=== PATIENT | male | born 1945 | race Caucasian/White ===

== ENCOUNTER 2022-09-17 09:44 | Emergency (ER) | payer MEDICARE, SELFPAY ==
--- NOTE | 2022-09-17 09:45 | ED.MALEGU ---
HPI - Male Genitourinary General Stated complaint: urinary issue Time Seen by Provider: 09/17/22 09:45 Source: patient Mode of arrival: ambulatory Limitations: no limitations Review of Systems Review of Systems: All systems reviewed & are unremarkable except as noted in HPI and below Constitutional: Constitutional: Denies chills, Denies fever(s), Denies headache(s), Denies malaise and Denies weakness Eyes: Eyes: Denies change in vision, Denies eye discharge and Denies irritation ENT: Denies otalgia, Denies headache(s), Denies nasal congestion, Denies nasal discharge, Denies sinus pain and Denies sore throat Cardiovascular: Cardiovascular: Denies chest pain, Denies edema, Denies palpitations and Denies dyspnea Respiratory: Respiratory: Denies cough and Denies dyspnea Gastrointestinal: Gastrointestinal: Denies abdominal pain, Denies diarrhea, Denies nausea and Denies vomiting Genitourinary: Genitourinary: Denies hematuria, Reports dysuria, Denies flank pain, Reports urinary frequency and Reports urinary urgency Musculoskeletal: Musculoskeletal: Denies back pain and Denies numbness Integumentary/Breasts: Skin/Breast: Denies pruritus and Denies rash Neurologic: Denies headache(s), Denies numbness and Denies weakness Psychiatric: Psychiatric: Reports no additional psychiatric complaints Endocrine: Endocrine: Denies palpitations PMFSH Comments At time of signature, agree with nursing past medical, surgical, social and family history. There is no relevant family history pertinent to the presenting complaint. Exam Const: General: cooperative, healthy appearing, comfortable, no acute distress and well nourished Nutritional Appearance: well nourished Orientation/consciousness: patient oriented x3 HENMT: Head: normocephalic and atraumatic Ears: external ears normal Face/Nose/Sinus: Normal external nose present, Normal nares present and normal facial exam Face and sinus: normal facial exam Eyes: General: appearance normal, both eyes and all related structures Pupils: Equal, round and reactive pupils present EOM: EOMs intact bilaterally Neck: Neck: normal visual inspection, full ROM and supple Chest: Chest palpation & inspection: normal inspection of the chest Resp: Effort & Inspection: normal respiratory effort and able to speak in complete sentences Cardio: Rate: regular rate Rhythm: regular rhythm GI: Inspection: normal to inspection GI Palp: No abdominal tenderness and Yes Soft to palpation : General: Yes no CVA tenderness Back/Spine/Pelvis: Back: no CVA tenderness Skin: General skin exam: normal color and no rashes or lesions noted Neuro: General: patient oriented x3 and moves all extremities Cranial nerves: Yes Equal, round and reactive pupils present Extrem: General: normal to inspection and full ROM Psych: Appearance: grossly normal and well kempt Course Course Emergency Course: Patient is aware of diagnosis, understands and agrees to treatment plan. Anticipatory guidance given. Patient agrees to follow-up as directed and is aware of reasons to seek care at the emergency department. Portions of this record may have been created with voice recognition software Level of Care: Express Care Visit Vital Signs Vital signs: Reviewed MDM - Male Genitourinary Lab Data Attestation: I reviewed the patient's lab results. Discharge Plan Discharge Follow-up/Referrals: UNKNOWN,DOCTOR [Primary Care Provider] -
== END 2022-09-17 09:50 | disposition left against medical advice (07) ==
PROVIDERS: Emergency Provider Internal Medicine Hematology & Oncology; PCP Emergency Medicine
DX: Z53.21 Procedure and treatment not carried out due to patient leaving prior to being seen by health care provider (principal)
CPT/HCPCS: 99199

== ENCOUNTER 2022-09-17 10:21 | Emergency (ER) | payer MEDICARE, SELFPAY ==
[2022-09-17 10:26] VITALS: BP 167/97; PULSE 95; RESP 18; TEMP 36.2; O2SAT 100
--- NOTE | 2022-09-17 10:50 | ED.MALEGU ---
HPI - Male Genitourinary General Chief complaint: Urogenital-Male Stated complaint: Urinary retention Time Seen by Provider: 09/17/22 10:35 History of Present Illness HPI Narrative: 77-year-old male reports for evaluation for urinary retention since this morning. Patient states last time he urinated was around 1 AM. States he had his Lasix and 2 cups of coffee in has not been able to empty his bladder. He does report a small amount of dribbling this morning. He does report recent increase urinary frequency and urgency but has never had urinary retention prior. He does not see a urologist. He is currently traveling from [place]. Denies abdominal pain, fever, dysuria or hematuria, back pain, rectal pain. Review of Systems Review of Systems: CONSTITUTIONAL: Denies fever, chills EYES: Denies visual changes, redness, or discharge. ENT: Denies rhinorrhea, congestion, sore throat, or otalgia. CARDIOVASCULAR: Denies chest pain, palpitations, or edema. RESPIRATORY: Denies cough or dyspnea. GASTROINTESTINAL: Denies abdominal pain, nausea, vomiting, or diarrhea. GENITOURINARY: See HPI SKIN: Denies rash or itching. MUSCULOSKELETAL: Denies back pain, joint pain, or myalgia. NEUROLOGIC: Denies headache, numbness, dizziness, or weakness. PSYCHIATRIC: Denies anxiety or depression. Exam Narrative: GENERAL: Well-appearing, in no acute distress. Patient resting comfortably in exam bed. He is pleasant and conversational HEAD: Normocephalic NECK: Supple. CHEST: No respiratory distress. Clear to auscultation, no adventitious breath sounds. HEART: Regular rate and rhythm. No murmur heard. Normal peripheral pulses. ABDOMEN: Soft, nontender, normal active bowel sounds. No CVA tenderness. No guarding or rigidity. No rebound tenderness. No scrotal or penile edema, erythema or tenderness. Pablo catheter placed in appropriate position. EXTREMITIES: Normal range of motion. No edema. SKIN: Warm, dry, no rash. NEURO: No focal deficits. Alert and oriented x3. PSYCH: Normal mood and affect. Course Vital Signs Vital signs: Vital Signs Temperature 97.1 F L 09/17/22 10:26 Pulse Rate 95 09/17/22 10:26 Respiratory Rate 18 09/17/22 10:26 Blood Pressure 167/97 H 09/17/22 10:26 Pulse Oximetry 100 09/17/22 10:26 Temperature 97.1 F L 09/17/22 10:26 Pulse Rate 79 09/17/22 12:05 Respiratory Rate 18 09/17/22 12:05 Blood Pressure 122/77 09/17/22 12:05 Pulse Oximetry 94 09/17/22 12:05 MDM - Male Genitourinary MDM Narrative Medical decision making narrative: 77-year-old male reports for evaluation for urinary retention since this morning. He does report increased urinary frequency and urgency but has never had urinary retention. He is traveling out of town from [place]. Vital stable. He is well-appearing on exam, abdomen is soft and nontender, no CVA tenderness. Bladder scan showed >200ccs, Pablo placed with clear urine draining w/o difficulty. 1500 ccs urine output. Urinalysis shows hematuria likely due to catheter placement, no UTI. Plan to discharge patient home with Pablo catheter and leg bag and to have close follow-up with his PCP and urology back in [place]. Strict ED return precautions were discussed. He is agreeable to plan verbalized understanding. Discharged in stable condition. Medical Records Attestation: I reviewed the patient's medical records. Lab Data Attestation: I reviewed the patient's lab results. Labs: Lab Results 09/17/22 Range/Units 11:09 Urine Color Yellow (Yellow) Urine Appearance Clear (Clear) Urine pH 5.5 (5.0-9.0) Ur Specific [place] 1.014 (1.001-1.035) Urine Protein Negative (Negative) mg/dL Urine Glucose (UA) Negative (Negative) mg/dL Urine Ketones Negative (Negative) mg/dL Ur Blood (Man) 3+ H (Negative) Urine Nitrate Negative (Negative) Urine Bilirubin Negative (Negative) Urine Urobilinogen 0.2 (<2.0) mg/dL Leukocyte E
[2022-09-17 11:21] LABS: Appearance Urine Clear (Clear); Bacteria Urine None Seen /hpf; Bilirubin Urine Negative (Negative); Blood Urine 3+ (Negative); Color Urine Yellow (Yellow); Glucose Urine UA Negative (Negative); Ketones Urine Negative (Negative); Leukocyte Esterase Ur Negative LEU/UL (Negative); Nitrate Urine Negative (Negative); Protein Urine Negative (Negative); RBC Urine >100 /hpf (0-2); Specific Grav Ur 1.014 (1.001-1.035); Squamous Epithelial Cell Urine None seen /hpf (Few); Urobilinogen Urine 0.2 mg/dL (<2.0); WBC Urine 0-5 /hpf; pH Urine 5.5 (5.0-9.0)
[2022-09-17 11:29] LABS: Add Urine Microscopic? YES
[2022-09-17 12:05] VITALS: BP 122/77; PULSE 79; RESP 18; O2SAT 94
== END 2022-09-17 12:12 | disposition home or self-care (01) ==
PROVIDERS: Emergency Provider Physician Assistant
DX: R33.9 Retention of urine, unspecified (principal)
CPT/HCPCS: 51702; 81001; 99283